=== PATIENT | male | born 1960 | race Caucasian/White ===

== ENCOUNTER 2019-11-09 10:25 | Emergency (ER) | payer OTHER ==
[~2019-11-09] VITALS: Ht 172.7 cm; Wt 90.7 kg
[2019-11-09 10:26] VITALS: BP 151/86
--- NOTE | 2019-11-09 10:28 | NUR ---
Patient ambulated to bed 11. RN evaluating patient at bedside.
--- NOTE | 2019-11-09 10:32 | NUR ---
59 Y/O M C/C LEFT UPPER LEG/HIP PAIN X 1 WEEK. PER PT MOVING COUCH AND INJURED LEFT LEG, PER PT PAIN IS LOCALIZED IN THE LEFT HIP. NO ECHYMOSSIS, CONTUSIONS, REDNESS NOTED. PT USING CANE FOR SUPPORT, ABLE TO AMBULATE. CMS WNL. ROM SLIGHTLY LIMITED. DENIES HEAD INJURY/LOC. ALLERGIES PNC. NO HX. RX METHADONE. NO NVD. SIDE RAIL X1.
[2019-11-09] MEDS ORDERED: KETOROLAC 60 MG/2 ML VIAL IM ONE (11:00)
[2019-11-09 11:08] VITALS: BP 145/80
--- NOTE | 2019-11-09 11:08 | NUR ---
Patient discharged with v/s stable. Written and verbal after care instructions given and explained. Patient alert, oriented and verbalized understanding of instructions. Ambulatory with steady gait. All questions addressed prior to discharge. ID band removed. Patient advised to follow up with PMD. Rx of MOTRIN,TRAMADOL given. Patient educated on indication of medication including possible reaction and side effects. Opportunity to ask questions provided and answered.
== END 2019-11-09 11:08 | disposition home or self-care (01) ==
LOC: MED 10:25
DX: S76.012A Strain of muscle, fascia and tendon of left hip, initial encounter (principal); R03.0 Elevated blood-pressure reading, without diagnosis of hypertension; Z88.0 Allergy status to penicillin; W22.8XXA Striking against or struck by other objects, initial encounter; Y93.89 Activity, other specified; Y92.89 Other specified places as the place of occurrence of the external cause; Y99.8 Other external cause status
CPT/HCPCS: 96372; 99283; J1885